=== PATIENT | female | born 1930 | race Caucasian/White ===

== ENCOUNTER 2020-12-28 18:22 | Inpatient (IN) | payer OTHER ==
[2020-12-28 20:55] LABS: INR 1.55 (0.83-1.09); PROTHROMBIN TIME (PATIENT) 18.5 SEC (9.7-13.0)
[2020-12-28 20:56] LABS: CHLORIDE 95 mmol/L (98-107); SODIUM 130 mmol/L (136-145)
[2020-12-28 20:57] LABS: ACTIVATED PTT 32.7 SECONDS (25.2-36.5)
[2020-12-28 20:58] LABS: ALBUMIN 2.5 g/dl (3.4-5.0); ANION GAP 8 MMOL/L (8-16); BLOOD UREA NITROGEN 18.9 mg/dL (7-18); CALCIUM 8.6 mg/dL (8.5-10.1); CO2 27 mmol/L (21-32); GLUCOSE,RANDOM 116 mg/dL (74-106); LIPASE 120 U/L (73-393)
[2020-12-28 20:59] LABS: BASO % 0.2 % (0-2.0); EOS % 0.3 % (0-4.5); HEMATOCRIT 38.3 % (32.4-45.2); HEMOGLOBIN 12.8 GM/dL (10.7-15.3); LYMPH % 4.1 % (8-40); MCH 29.3 pg (25.7-33.7); MCHC 33.4 g/dl (32.0-36.0); MEAN CELL VOLUME 87.8 fl (80-96); MEAN PLT VOLUME 7.2 fl (7.5-11.1); MONO % 4.9 % (3.8-10.2); NEUT % 90.5 % (42.8-82.8); PLATELET COUNT 485 K/MM3 (134-434); RBC 4.36 M/mm3 (3.60-5.2); RDW 14.5 % (11.6-15.6); WHITE BLOOD COUNT 14.2 K/mm3 (4.0-10.0)
[2020-12-28 21:01] LABS: SGOT/AST 31 U/L (15-37); SGPT/ALT 15 U/L (13-61)
[2020-12-28 21:02] LABS: BILIRUBIN,TOTAL 0.7 mg/dL (0.2-1)
[2020-12-28 21:04] LABS: ALK PHOS 166 U/L (45-117)
[2020-12-28] MEDS ORDERED: FUROSEMIDE 40 MG/4 ML INJECTABLE VIAL IVPUSH ONE (23:11)
[2020-12-28] MEDS ORDERED: ACETAMINOPHEN 1000 MG/100 ML VIAL (NON FORMULARY) IVPB ONE (23:12)
[2020-12-28] MEDS ORDERED: ACETAMINOPHEN INJECTION 100 ML IVPB ONE (23:21)
[2020-12-28] MEDS ORDERED: FUROSEMIDE 40 MG/4 ML INJECTABLE VIAL ONE (23:21)
[2020-12-29 03:58] LABS: EPI CELLS 2 /uL (0-25.1); HYALINE CASTS 1 /uL (0-3.1); PH,URINE 5.5 (5.0-8.0); URINE APPEARANCE CLOUDY; URINE BACTERIA >9,000 /uL (0-1359); URINE BILIRUBIN NEGATIVE (NEGATIVE); URINE COLOR YELLOW; URINE GLUCOSE (UA) NEGATIVE (NEGATIVE); URINE KETONE NEGATIVE (NEGATIVE); URINE LEUK ESTERASE 3+ (NEGATIVE); URINE NITRITE POSITIVE (NEGATIVE); URINE PROTEIN NEGATIVE (NEGATIVE); URINE RBC 31 /uL (0-23.9); URINE UROBILINOGEN 0.2 mg/dL (0.2-1.0); URINE WBC 1635 /uL (0-25.8)
[2020-12-29] MEDS ORDERED: VERAPAMIL HCL 80 MG TABLET PO ONE (06:52)
[2020-12-29] MEDS ORDERED: CEFTRIAXONE 1 GM in DEXTROSE 5%-WATER - 50 ML IVPB ONE (07:06)
[2020-12-29] MEDS ORDERED: CEFTRIAXONE 1 GM/50 ML BAG ONE (07:26)
[2020-12-29 07:58] LABS: INR 1.38 (0.83-1.09); PROTHROMBIN TIME (PATIENT) 16.5 SEC (9.7-13.0)
[2020-12-29 08:04] LABS: HEMATOCRIT 35.7 % (32.4-45.2); HEMOGLOBIN 12.3 GM/dL (10.7-15.3); MCH 29.7 pg (25.7-33.7); MCHC 34.4 g/dl (32.0-36.0); MEAN CELL VOLUME 86.4 fl (80-96); MEAN PLT VOLUME 7.3 fl (7.5-11.1); PLATELET COUNT 449 K/MM3 (134-434); RBC 4.13 M/mm3 (3.60-5.2); RDW 14.7 % (11.6-15.6); WHITE BLOOD COUNT 14.9 K/mm3 (4.0-10.0)
[2020-12-29 08:13] LABS: CHLORIDE 94 mmol/L (98-107); SODIUM 130 mmol/L (136-145)
[2020-12-29 08:19] LABS: ALBUMIN 2.2 g/dl (3.4-5.0); ANION GAP 8 MMOL/L (8-16); BLOOD UREA NITROGEN 16.9 mg/dL (7-18); CALCIUM 8.4 mg/dL (8.5-10.1); CO2 28 mmol/L (21-32); GLUCOSE,RANDOM 90 mg/dL (74-106)
[2020-12-29 08:22] LABS: CREATININE 0.9 mg/dL (0.55-1.3); SGOT/AST 26 U/L (15-37); SGPT/ALT 13 U/L (13-61)
[2020-12-29 08:23] LABS: BILIRUBIN,TOTAL 0.7 mg/dL (0.2-1); TOT PROT 6.2 g/dl (6.4-8.2)
[2020-12-29 08:25] LABS: ALK PHOS 155 U/L (45-117)
[2020-12-29 08:28] LABS: N-TERMINAL BNP 3026.1 pg/ml (5-450)
[2020-12-29] MEDS ORDERED: VERAPAMIL HCL 180 MG PO SCH (10:00)
[2020-12-29] MEDS: VERAPAMIL HCL 180 MG E.R. TABLET PO SCH (12:05)
[2020-12-29] MEDS: TAMSULOSIN HCL 0.4 MG CAP PO SCH (13:15)
[2020-12-29] MEDS: APIXABAN 2.5 MG TABLET PO SCH (13:15)
[2020-12-29] MEDS ORDERED: TAMSULOSIN HCL 0.4 MG CAP ONE (13:22)
[2020-12-29] MEDS ORDERED: APIXABAN 2.5 MG TABLET ONE (13:22)
[2020-12-29] MEDS ORDERED: FUROSEMIDE 40 MG/4 ML INJECTABLE VIAL ONE (14:54)
[2020-12-29] MEDS: FUROSEMIDE 40 MG/4 ML INJECTABLE VIAL IVPUSH SCH (15:02)
[2020-12-29] MEDS: VERAPAMIL HCL 40 MG TABLET PO SCH (15:27)
[2020-12-29] MEDS ORDERED: METOPROLOL TARTRATE 25 MG TABLET (FP) PO ONE (23:51)
[2020-12-30] MEDS: MONTELUKAST NA 10 MG TABLET PO SCH ×2 (00:07→22:01)
[2020-12-30] MEDS: ATORVASTATIN CA 10 MG TABLET (FP) PO SCH ×2 (00:07→22:01)
[2020-12-30] MEDS: VERAPAMIL HCL 40 MG TABLET PO SCH ×2 (00:08→06:14)
[2020-12-30] MEDS: APIXABAN 2.5 MG TABLET PO SCH ×3 (00:08→22:01)
[2020-12-30 01:51] VITALS: BMI 27.6
[2020-12-30] MEDS: FUROSEMIDE 40 MG/4 ML INJECTABLE VIAL IVPUSH SCH ×2 (05:07→14:02)
[2020-12-30 09:41] LABS: BASO % 0.2 % (0-2.0); EOS % 0.2 % (0-4.5); HEMATOCRIT 36.5 % (32.4-45.2); HEMOGLOBIN 12.4 GM/dL (10.7-15.3); MCH 29.3 pg (25.7-33.7); MCHC 33.8 g/dl (32.0-36.0); MEAN CELL VOLUME 86.6 fl (80-96); MEAN PLT VOLUME 7.1 fl (7.5-11.1); MONO % 5.3 % (3.8-10.2); NEUT % 90.3 % (42.8-82.8); PLATELET COUNT 485 K/MM3 (134-434); RBC 4.22 M/mm3 (3.60-5.2); RDW 14.9 % (11.6-15.6); WHITE BLOOD COUNT 15.8 K/mm3 (4.0-10.0)
[2020-12-30 09:59] LABS: CALCIUM 8.4 mg/dL (8.5-10.1)
[2020-12-30 10:00] LABS: ALBUMIN 2.1 g/dl (3.4-5.0); BLOOD UREA NITROGEN 21.5 mg/dL (7-18)
[2020-12-30 10:03] LABS: CREATININE 0.9 mg/dL (0.55-1.3)
[2020-12-30 10:05] LABS: BILIRUBIN,TOTAL 0.6 mg/dL (0.2-1)
[2020-12-30] MEDS ORDERED: PT OWN MED DRAWER 7, Y5N ONE (10:11)
[2020-12-30] MEDS: TAMSULOSIN HCL 0.4 MG CAP PO SCH (10:22)
[2020-12-30] MEDS: VERAPAMIL HCL 180 MG E.R. TABLET PO SCH (10:23)
[2020-12-30] MEDS ORDERED: CEFTRIAXONE 1,000 GM in DEXTROSE 5%-WATER - 50 ML IVPB SCH (12:15)
[2020-12-30] MEDS ORDERED: FUROSEMIDE 40 MG/4 ML INJECTABLE VIAL IVPUSH ONE (14:26)
[2020-12-30] MEDS ORDERED: CEFTRIAXONE 1 GM in DEXTROSE 5%-WATER - 50 ML IVPB SCH (14:38)
[2020-12-30] MEDS ORDERED: DEXTROSE 5%-WATER - 50 ML IVPB ONE (14:48)
[2020-12-30] MEDS ORDERED: cefTRIAXone SODIUM 1 GM VIAL ONE (14:48)
[2020-12-30] MEDS: CEFTRIAXONE 1 GM in DEXTROSE 5%-WATER - 50 ML IVPB SCH (14:52)
[2020-12-31] MEDS: FUROSEMIDE 40 MG/4 ML INJECTABLE VIAL IVPUSH SCH ×2 (07:18→14:25)
[2020-12-31] MEDS ORDERED: cefTRIAXone SODIUM 1 GM VIAL ONE (09:06)
[2020-12-31] MEDS ORDERED: DEXTROSE 5%-WATER - 50 ML IVPB ONE (09:06)
[2020-12-31 09:39] LABS: BASO % 0.2 % (0-2.0); EOS % 0.3 % (0-4.5); HEMATOCRIT 38.4 % (32.4-45.2); LYMPH % 3.6 % (8-40); MCH 29.4 pg (25.7-33.7); MCHC 33.8 g/dl (32.0-36.0); MEAN PLT VOLUME 6.8 fl (7.5-11.1); NEUT % 89.9 % (42.8-82.8); PLATELET COUNT 458 K/MM3 (134-434); RBC 4.41 M/mm3 (3.60-5.2); RDW 14.7 % (11.6-15.6); WHITE BLOOD COUNT 15.1 K/mm3 (4.0-10.0)
[2020-12-31] MEDS: VERAPAMIL HCL 180 MG E.R. TABLET PO SCH (10:04)
[2020-12-31] MEDS: APIXABAN 2.5 MG TABLET PO SCH ×2 (10:04→22:03)
[2020-12-31] MEDS: TAMSULOSIN HCL 0.4 MG CAP PO SCH (10:04)
[2020-12-31 10:13] LABS: BLOOD UREA NITROGEN 22.4 mg/dL (7-18)
[2020-12-31] MEDS: CEFTRIAXONE 1 GM in DEXTROSE 5%-WATER - 50 ML IVPB SCH (11:17)
[2020-12-31] MEDS: MONTELUKAST NA 10 MG TABLET PO SCH (22:03)
[2020-12-31] MEDS: ATORVASTATIN CA 10 MG TABLET (FP) PO SCH (22:03)
[2021-01-01] MEDS: FUROSEMIDE 40 MG/4 ML INJECTABLE VIAL IVPUSH SCH ×2 (06:08→13:25)
[2021-01-01 07:35] LABS: BASO % 0.1 % (0-2.0); EOS % 0.6 % (0-4.5); HEMATOCRIT 35.4 % (32.4-45.2); HEMOGLOBIN 12.1 GM/dL (10.7-15.3); LYMPH % 4.6 % (8-40); MCH 29.6 pg (25.7-33.7); MCHC 34.1 g/dl (32.0-36.0); MEAN CELL VOLUME 86.9 fl (80-96); MEAN PLT VOLUME 7.2 fl (7.5-11.1); MONO % 7.2 % (3.8-10.2); NEUT % 87.5 % (42.8-82.8); PLATELET COUNT 390 K/MM3 (134-434); RBC 4.08 M/mm3 (3.60-5.2); RDW 14.2 % (11.6-15.6); WHITE BLOOD COUNT 12.4 K/mm3 (4.0-10.0)
[2021-01-01 07:46] LABS: BLOOD UREA NITROGEN 22.3 mg/dL (7-18)
[2021-01-01 07:47] LABS: CALCIUM 7.6 mg/dL (8.5-10.1)
[2021-01-01 07:50] LABS: CREATININE 0.8 mg/dL (0.55-1.3); MAGNESIUM 2.3 mg/dL (1.8-2.4); PHOSPHOROUS 2.9 mg/dL (2.5-4.9)
[2021-01-01 07:51] LABS: BILIRUBIN,TOTAL 0.6 mg/dL (0.2-1); TOT PROT 5.9 g/dl (6.4-8.2)
[2021-01-01] MEDS ORDERED: DEXTROSE 5%-WATER - 50 ML IVPB ONE (08:55)
[2021-01-01] MEDS ORDERED: cefTRIAXone SODIUM 1 GM VIAL ONE (08:55)
[2021-01-01] MEDS: TAMSULOSIN HCL 0.4 MG CAP PO SCH (09:27)
[2021-01-01] MEDS: APIXABAN 2.5 MG TABLET PO SCH ×2 (09:27→21:53)
[2021-01-01] MEDS: VERAPAMIL HCL 180 MG E.R. TABLET PO SCH (09:27)
[2021-01-01] MEDS: CEFTRIAXONE 1 GM in DEXTROSE 5%-WATER - 50 ML IVPB SCH (09:27)
[2021-01-01] MEDS: VALSARTAN 40 MG TABLET PO SCH (13:25)
[2021-01-01] MEDS ORDERED: POLYETHYLENE GLYCOL 3350 119 GM BTL PO PRN (15:10)
[2021-01-01] MEDS ORDERED: MORPHINE SULFATE 2 MG/ML VIAL IVPUSH PRN (21:28)
[2021-01-01] MEDS ORDERED: FUROSEMIDE 40 MG/4 ML INJECTABLE VIAL IVPUSH ONE ×2 (21:28→21:45)
[2021-01-01] MEDS ORDERED: MORPHINE SULFATE 2 MG/ML VIAL IVPUSH ONE (21:45)
[2021-01-01] MEDS: CARVEDILOL 3.125 MG TABLET (FP) PO SCH (21:52)
[2021-01-01] MEDS: ATORVASTATIN CA 10 MG TABLET (FP) PO SCH (21:52)
[2021-01-01] MEDS: MONTELUKAST NA 10 MG TABLET PO SCH (21:52)
[2021-01-02] MEDS ORDERED: PT OWN MED DRAWER 7, Y5N ONE (00:39)
[2021-01-02] MEDS: FUROSEMIDE 40 MG/4 ML INJECTABLE VIAL IVPUSH SCH ×2 (06:44→13:37)
[2021-01-02 07:19] LABS: BASO % 0.3 % (0-2.0); EOS % 0.6 % (0-4.5); HEMATOCRIT 35.8 % (32.4-45.2); HEMOGLOBIN 12.3 GM/dL (10.7-15.3); MCH 29.7 pg (25.7-33.7); MCHC 34.3 g/dl (32.0-36.0); MEAN CELL VOLUME 86.6 fl (80-96); MEAN PLT VOLUME 7.2 fl (7.5-11.1); MONO % 7.9 % (3.8-10.2); NEUT % 86.2 % (42.8-82.8); PLATELET COUNT 431 K/MM3 (134-434); RBC 4.13 M/mm3 (3.60-5.2); RDW 14.6 % (11.6-15.6); WHITE BLOOD COUNT 12.6 K/mm3 (4.0-10.0)
[2021-01-02 07:34] LABS: CALCIUM 7.4 mg/dL (8.5-10.1)
[2021-01-02 07:35] LABS: BLOOD UREA NITROGEN 25.2 mg/dL (7-18); MAGNESIUM 2.2 mg/dL (1.8-2.4)
[2021-01-02 07:38] LABS: CREATININE 0.9 mg/dL (0.55-1.3); PHOSPHOROUS 2.8 mg/dL (2.5-4.9)
[2021-01-02 07:40] LABS: BILIRUBIN,TOTAL 0.6 mg/dL (0.2-1)
[2021-01-02] MEDS ORDERED: DEXTROSE 5%-WATER - 50 ML IVPB ONE (09:39)
[2021-01-02] MEDS ORDERED: cefTRIAXone SODIUM 1 GM VIAL ONE (09:39)
[2021-01-02] MEDS: CEFTRIAXONE 1 GM in DEXTROSE 5%-WATER - 50 ML IVPB SCH (11:28)
[2021-01-02] MEDS: SPIRONOLACTONE 25 MG TABLET PO SCH (11:29)
[2021-01-02] MEDS: APIXABAN 2.5 MG TABLET PO SCH ×2 (11:29→21:38)
[2021-01-02] MEDS: TAMSULOSIN HCL 0.4 MG CAP PO SCH (11:29)
[2021-01-02] MEDS: VALSARTAN 40 MG TABLET PO SCH (11:29)
[2021-01-02] MEDS: CARVEDILOL 3.125 MG TABLET (FP) PO SCH ×2 (11:43→21:38)
[2021-01-02 13:27] LABS: BF WBC & OTHER NUCLEATED CELLS 600 /mm3
[2021-01-02 15:01] LABS: BODY FLUID MACROPHAGES 10 %; BODY FLUID MESOTHELIAL 6 %; BODY FLUID MONOCYTE 10 %
[2021-01-02] MEDS: MONTELUKAST NA 10 MG TABLET PO SCH (21:38)
[2021-01-02] MEDS: ATORVASTATIN CA 10 MG TABLET (FP) PO SCH (21:38)
[2021-01-03] MEDS: FUROSEMIDE 40 MG/4 ML INJECTABLE VIAL IVPUSH SCH (06:24)
[2021-01-03 07:08] LABS: SARS-CoV-2 NAA Not Detected (Not Detected)
[2021-01-03 08:00] LABS: BLOOD UREA NITROGEN 20.8 mg/dL (7-18); MAGNESIUM 2.2 mg/dL (1.8-2.4)
[2021-01-03 08:01] LABS: CALCIUM 7.1 mg/dL (8.5-10.1)
[2021-01-03 08:03] LABS: CREATININE 0.7 mg/dL (0.55-1.3)
[2021-01-03] MEDS: TAMSULOSIN HCL 0.4 MG CAP PO SCH (08:48)
[2021-01-03] MEDS ORDERED: cefTRIAXone SODIUM 1 GM VIAL ONE (09:57)
[2021-01-03] MEDS ORDERED: DEXTROSE 5%-WATER - 50 ML IVPB ONE (09:57)
[2021-01-03] MEDS ORDERED: FUROSEMIDE 40 MG/4 ML INJECTABLE VIAL IVPUSH SCH (10:00)
[2021-01-03] MEDS: SPIRONOLACTONE 25 MG TABLET PO SCH (10:48)
[2021-01-03] MEDS: CARVEDILOL 3.125 MG TABLET (FP) PO SCH (10:48)
[2021-01-03] MEDS: VALSARTAN 40 MG TABLET PO SCH (10:51)
[2021-01-03] MEDS: APIXABAN 2.5 MG TABLET PO SCH (10:51)
[2021-01-03] MEDS: CEFTRIAXONE 1 GM in DEXTROSE 5%-WATER - 50 ML IVPB SCH (10:54)
[2021-01-03 17:48] VITALS: BP 98/62; PULSE 114; TEMP 98
[2021-01-04 15:11] LABS: BODY FLUID ALBUMIN 1.9 g/dL (Not Estab.)
== END 2021-01-03 18:18 | disposition short-term general hospital (02) | DRG 292 ==
LOC: JER 18:22 → JERBED 22:35 → J5S 12-29 21:47 → J4W 12-30 13:57
PROVIDERS: ADMIT Specialist; ATTEND Specialist
PROC: 0W9G3ZX Drainage of Peritoneal Cavity, Percutaneous Approach, Diagnostic (ICD-10-PCS; principal; 2021-01-02)
DX: I11.0 Hypertensive heart disease with heart failure (principal); I48.19 Other persistent atrial fibrillation; E87.1 Hypo-osmolality and hyponatremia; N13.2 Hydronephrosis with renal and ureteral calculous obstruction; N39.0 Urinary tract infection, site not specified; R18.8 Other ascites; I50.33 Acute on chronic diastolic (congestive) heart failure; F03.90 Unspecified dementia, unspecified severity, without behavioral disturbance, psychotic disturbance, mood disturbance, and anxiety; K76.9 Liver disease, unspecified; K83.8 Other specified diseases of biliary tract; E78.5 Hyperlipidemia, unspecified; E87.70 Fluid overload, unspecified; I25.119 Atherosclerotic heart disease of native coronary artery with unspecified angina pectoris; K76.0 Fatty (change of) liver, not elsewhere classified
CPT/HCPCS: 36415; 70450-TC; 71045-TC-FY; 71260-TC; 74177-TC; 76942-TC; 80048; 80053; 81003; 82042; 82150; 82465; 82945; 82977; 83605; 83615; 83690; 83735; 83880; 83986; 84100; 84157; 84478; 84484; 85025; 85027; 85610; 85730; 86850; 86900; 86901; 87070; 87075; 87086; 87102; 87116; 87186; 87205; 87206; 87210; 93005; 93010; 93306-TC; 99285-25; C9803; J0131; Q9967; U0003; U0005